=== PATIENT | male | born 1960 | race Caucasian/White ===

== ENCOUNTER → 2021-12-11 | Outpatient (CLI) | payer BC | LOC: ORTHO 15:08 | PROVIDERS: ATTEND Orthopaedic Surgery | DX: M17.12 Unilateral primary osteoarthritis, left knee (principal) | CPT/HCPCS: 93005; 99213 ==

== ENCOUNTER → 2021-12-11 | Outpatient (CLI) | payer BC ==
[2021-12-11 17:31] LABS: BILIRUBIN,URINE NEGATIVE (NEGATIVE); CLARITY,URINE CLEAR; COLOR,URINE YELLOW; GLUCOSE, URINE (UA) NEGATIVE (NEGATIVE); KETONES,URINE NEGATIVE (NEGATIVE); LEUKOCYTE ESTERASE ,URINE NEGATIVE (NEGATIVE); NITRITE,URINE NEGATIVE (NEGATIVE); PROTEIN,URINE NEGATIVE (NEGATIVE)
[2021-12-11 17:37] LABS: BASOPHILS # (AUTO) 0.1 10^3/uL (0.0-0.1); BASOPHILS % (AUTO) 1 % (0-10); EOSINOPHILS # (AUTO) 0.7 10^3/uL (0.0-0.3); EOSINOPHILS % (AUTO) 7 % (0-10); HEMATOCRIT 42 % (40-54); HEMOGLOBIN 13.3 g/dL (13.3-17.7); LYMPHOCYTES # (AUTO) 3.2 10^3/uL (1.0-4.0); LYMPHOCYTES % (AUTO) 33 % (12-44); MEAN CORPUSCULAR HEMOGLOBIN 27 pg (25-34); MEAN CORPUSCULAR HGB CONC 32 g/dL (32-36); MEAN CORPUSCULAR VOLUME 85 fL (80-99); MEAN PLATELET VOLUME 9.3 fL (9.0-12.2); MONOCYTES % (AUTO) 10 % (0-12); NEUTROPHILS # (AUTO) 4.6 10^3/uL (1.8-7.8); NEUTROPHILS % (AUTO) 49 % (42-75); PLATELET COUNT 338 10^3/uL (130-400); WHITE BLOOD COUNT 9.5 10^3/uL (4.3-11.0)
[2021-12-11 17:39] LABS: BACTERIA,URINE NEGATIVE /HPF; SQUAMOUS EPITHELIAL CELL,UR RARE /HPF
[2021-12-11 17:42] LABS: POTASSIUM 3.8 MMOL/L (3.6-5.0)
[2021-12-11 17:43] LABS: CALCIUM 9.8 MG/DL (8.5-10.1)
[2021-12-11 17:44] LABS: INR 0.9 (0.8-1.4); PROTHROMBIN TIME PATIENT 12.1 SEC (12.2-14.7)
[2021-12-11 17:47] LABS: CREATININE SERUM 0.81 MG/DL (0.60-1.30)
--- NOTE | 2021-12-11 18:06 | Diagnostic Imaging Report ---
INDICATION: Preop for left knee replacement surgery. TIME OF EXAM: 4:49 PM No prior studies are available for comparison. FINDINGS: The heart size is normal. The pulmonary vascularity is unremarkable. The lungs are clear. No infiltrate, effusion or pneumothorax is detected. IMPRESSION: No acute cardiopulmonary process is detected. Dictated by: Dictated on workstation # [id number]
--- NOTE | 2021-12-11 18:25 | Diagnostic Imaging Report ---
INDICATION: Left knee replacement surgery. TIME OF EXAM: 4:52 PM Multiple views of the left knee demonstrate significant medial compartmental degenerative change with complete loss of the medial joint space. Lateral compartment is fairly well maintained. There is some marginal spurring present. No fracture, dislocation or effusion is seen. IMPRESSION: Degenerative changes. No acute bony abnormality is detected. Dictated by: Dictated on workstation # [id number]
== END ==
LOC: RT 16:23
PROVIDERS: ATTEND Orthopaedic Surgery
DX: Z00.00 Encounter for general adult medical examination without abnormal findings (principal); M17.12 Unilateral primary osteoarthritis, left knee; Z96.652 Presence of left artificial knee joint
CPT/HCPCS: 36415; 71046; 73564; 80048; 81000; 85025; 85610; 85730

== ENCOUNTER 2021-12-25 05:37 | Outpatient (CLI) | payer BC ==
[~2021-12-25] VITALS: Ht 175.3 cm; Wt 125.0 kg
[2021-12-26] MEDS ORDERED: ACET325C7 PO (16:03)
[2021-12-26] MEDS ORDERED: ASPI81TA64 PO (16:03)
[2021-12-26] MEDS ORDERED: OMG1KC PO (16:03)
[2021-12-26] MEDS ORDERED: CALC-900 PO (16:03)
[2021-12-26] MEDS ORDERED: CHOL100048 PO (16:03)
[2021-12-26] MEDS ORDERED: LISI10TA25 PO (16:03)
[2021-12-26] MEDS ORDERED: FURO20TA4 PO (16:03)
[2021-12-26] MEDS ORDERED: IBUP200C11 PO (16:03)
[2021-12-26] MEDS ORDERED: ATOR40TA70 PO (16:03)
[2021-12-26] MEDS ORDERED: LORA10TA7 PO (16:03)
[2021-12-26] MEDS ORDERED: MULT-567 PO (16:03)
[2021-12-26] MEDS ORDERED: POTA10TA37 PO (16:03)
== END 2021-12-26 16:12 | disposition home or self-care (01) ==
LOC: PREOP 05:37
PROVIDERS: ATTEND Orthopaedic Surgery
DX: Z01.818 Encounter for other preprocedural examination (principal)

== ENCOUNTER 2021-12-31 06:15 | Inpatient (IN) | payer BC ==
[2021-12-31] VITALS (11 sets, daily range): BP systolic 134–203; BP diastolic 61–105
[~2021-12-31] VITALS: Ht 175.3 cm; Wt 125.0 kg
[~2021-12-31 06:15] MED LIST: ACET325C7 PO; ASPI81TA64 PO; ATOR40TA70 PO; CALC-900 PO; CHOL100048 PO; FURO20TA4 PO; IBUP200C11 PO; LISI10TA25 PO; LORA10TA7 PO; MULT-567 PO; OMG1KC PO; POTA10TA37 PO
[2021-12-31] MEDS ORDERED: MIDAZOLAM 2 MG/2 ML (VERSED) VIAL ONE (06:43)
[2021-12-31] MEDS ORDERED: ROPIVACAINE 5MG/ML 30ML VIAL ONE (06:45)
[2021-12-31] MEDS ORDERED: ceFAZolin INJECTION 3,000 MG in NS (IVPB) 100 ML IV ONE ×4 (07:00)
[2021-12-31] MEDS: LACTATED RINGERS 1,000 ML IV PRN ×2 (07:00→08:05)
[2021-12-31] MEDS ORDERED: LACTATED RINGERS 1,000 ML IV PRN (07:00)
--- NOTE | 2021-12-31 07:08 | Progress Note-Pre Operative ---
Pre-Operative Progress Note H&P Reviewed The H&P was reviewed, patient examined and no changes noted. Date Seen by Provider: Dec 31, 2021 Time Seen by Provider: 07:05 Date H&P Reviewed: Dec 31, 2021 Time H&P Reviewed: 07:05 Pre-Operative Diagnosis: Left Knee Primary Osteoarthritis RAYNA BRAR MD Dec 31, 2021 07:08
[2021-12-31] MEDS ORDERED: fentaNYL INJ 100 MCG/2 ML AMP ONE (07:09)
[2021-12-31] MEDS ORDERED: proPOfol 200 MG/20 ML (DIPRIVAN) VIAL IV ONE (07:09)
[2021-12-31] MEDS ORDERED: LIDOCAINE PF 2% 5 ML (XYLOCAINE) VIAL ONE (07:09)
[2021-12-31] MEDS ORDERED: ONDANSETRON 4 MG/2 ML (SDV) Z0FRAN ONE (07:09)
[2021-12-31] MEDS ORDERED: ROCURONIUM 10 MG/ML 5 ML SYRINGE IV ONE (07:10)
[2021-12-31] MEDS ORDERED: NEOSTIGMINE 3 MG/3 ML VIAL ONE (07:10)
[2021-12-31] MEDS ORDERED: GLYCOPYRROLATE 0.2 MG/ML (ROBINUL) 2 ML VIAL ONE (07:10)
[2021-12-31] MEDS ORDERED: TRANEXAMIC ACID 100 MG/ML 10 ML INJECTION ONE (07:23)
[2021-12-31] MEDS ORDERED: TRANEXAMIC ACID INJECTION 3,000 MG, SODIUM CHLORIDE 0.9% IRRIGATIO 150 ML IR ONE ×2 (07:45)
[2021-12-31] MEDS ORDERED: HYDROmorphone 2 MG/ML VIAL (DILAUDID) ONE (07:47)
[2021-12-31] MEDS ORDERED: SEVOFLURANE (ULTANE) 15 ML INHAL SOLN ONE (09:27)
[2021-12-31] MEDS ORDERED: MILK OF MAGNESIA 400 MG/5 ML 30 ML UDC PO PRN (09:45)
[2021-12-31] MEDS ORDERED: ONDANSETRON 4 MG/2 ML (SDV) Z0FRAN IV PRN (09:45)
[2021-12-31] MEDS ORDERED: BISACODYL 5 MG (DULCOLAX) TABLET PO PRN (09:45)
--- NOTE | 2021-12-31 10:04 | Operative Report - Ortho ---
Operative Report Surgeon (s)/Customer Service Correspondence Clerk (s) Surgeon RAYNA BRAR MD Customer Service Correspondence Clerk n/a Pre-Operative Diagnosis Left Knee Primary Osteoarthritis Post-Operative Diagnosis same Operative Report Date of Procedure: Dec 31, 2021 Name of Procedure Performed: Left Total Knee Arthroplasty Description & Findings After obtaining informed consent and marking the patient in the preoperative holding area, the patient did receive IV antibiotics. Patient was taken to the operating room and anesthesia was induced. Surgical timeout was taken. The left lower extremity was prepped and draped in the usual sterile fashion. Incision was made and carried down to fascia. Arthrotomy was performed on the medial side of the patella. Patella was retracted laterally and knee was flexed. Found to have circumferential osteophtye around the distal femur as well as exposed bone in the medial compartment. Hole was made in the distal femur for the intramedullary distal femoral cutting guide. Resection was made then the femur was sized as a 5. 4-in-1 block for a size [address]. Anterior cut was made and there was no notch. Posterior cut was made followed by the chamfers. Box cut was performed. Lug holes were drilled. Attention was turned to the tibial side, extramedullary tibial guide was put into place and aligned with the tibial crest. It was set to take 2 mm off of the affected medial side. Drop stanton was used to confirm alignment. Resection was made and was parallel to the joint line. Tibial bone block was removed. Lamina veneer glue spreader was put into place and the menisci and posterior osteophytes were removed. The knee was trialed with a size 5 femur and a size 5 tibia with a 9 mm poly trial. It was found to come out to full extension and flexed beyond 120 degrees. It was stable to varus and valgus stress throughout its range of motion. This was accepted. Knee was brought out into extension and the patellar articular surface was in good condition. Osteophytes were removed from around the perimeter of the patella. Trial implants were removed. Tibial tray was pinned and punched. Tibial press fit guide was placed and holes were drilled. The cut bone surfaces were lavaged with pulsatile normal saline. Implants were opened and assembled on the back table. A size 5 press fit tibial component was impacted into place. A size 5 press fit femoral component was impacted into place. Tibial tray was lavaged with saline. A 9 mm thick polyethylene component was locked into placed and the locking mechanism was checked. Knee was brought into extension. Betadine soak was performed and then, the knee was irrigated with normal saline. The knee was once again trialed; found to come to full extension, flexed beyond 120 degrees, and was stable to varus and valgus stress. Tourniquet was dropped and electrocautery was used for hemostasis. Fascial layer was closed with #1 Ethibond. The subcutaneous layer was closed with 2-0 Vicryl. The skin was closed with a running subcuticular 3-0 V-loc. Wound was dressed with steri- strips, xeroform, 4x4s, ABD, webril, and LIYA wrap. Patient tolerated the proc edure well and was stable to the recovery room. Anesthesia Type General plus Regional Estimated Blood Loss 150 mL Specimen(s) collected/removed None RAYNA BRAR MD Dec 31, 2021 10:04
--- NOTE | 2021-12-31 10:08 | Diagnostic Imaging Report ---
INDICATION: Left knee pain. TECHNIQUE: AP and lateral views of the left knee were obtained. FINDINGS: There is a left knee prosthesis which appears in good alignment. There is no sign of device loosening or fracture. There is soft tissue gas, compatible with the recent surgery. There is no unexpected radiopaque foreign body. IMPRESSION: Well aligned left knee prosthesis with no acute abnormality. Dictated by: Dictated on workstation # [id number]
[2021-12-31] MEDS ORDERED: morphine INJ 10 MG/ML 1ML (SYR OR VIAL) IVP ONE (10:15)
[2021-12-31] MEDS ORDERED: ONDANSETRON 4 MG/2 ML (SDV) Z0FRAN IVP PRN (10:15)
[2021-12-31] MEDS ORDERED: LABETALOL HCL 20 MG/4 ML VIAL IV PRN (10:15)
[2021-12-31] MEDS ORDERED: HYDROmorphone 2 MG/ML VIAL (DILAUDID) IV ONE (10:15)
--- NOTE | 2021-12-31 11:38 | Physical Therapy Evaluation ---
PT Evaluation-General Medical Diagnosis Admission Date Dec 31, 2021 at 06:15 Medical Diagnosis: left knee TKR Onset Date: Dec 31, 2021 Therapy Diagnosis Therapy Diagnosis: impaired mobility/strength Weight Bear Status Right Lower Extremity: Right Full Weight Bearing Left Lower Extremity: Left Weight Bearing/Tolerated Referral Physician: Fátima Reason for Referral: Evaluation/Treatment Medical History Current History s/p elective left TKR Reviewed History: Yes Social History Home: Single Level Current Living Status: Spouse Prior Prior Level of Function SCALE: Activities may be completed with or without assistive devices. 3-Iqhesrjmhc-rraytiy completes the activity by him/herself with no assistance from a helper. 5-Set-up or Clean-up Assistance-helper sets up or cleans up; patient completes activity. [place] assists only prior to or following the activity. 4-Supervision or Touching Assistance-helper provides verbal cues and/or touching/steadying and/or contact guard assistance as patient completes ac tivity. Assistance may be provided throughout the activity or intermittently. 3-Partial/Moderate Assistance-helper does LESS THAN HALF the effort. [place] lifts, holds or supports trunk or limbs, but provides less than half the effort. 2-Substantial/Maximal Assistance-helper does MORE THAN HALF the effort. [place] lifts or holds trunk or limbs and provides more than half the effort. 3-Vobkbinvb-idqxww does ALL the effort. Patient does none of the effort to complete the activity. Or, the assistance of 2 or more helpers is required for the patient to complete the activity. If activity was not attempted, code reason: 7-Patient Refused. 9-Not Applicable-not attempted and the patient did not perform the activity before the current illness, exacerbation or injury. 10-Not Attempted due to Environmental Limitations-(lack of equipment, weather restraints, etc.). 88-Not Attempted due to Medical Conditions or Safety Concerns. Bed Mobility: 6 Transfers (B,C,W/C): 6 Gait: 6 Stairs: 6 Indoor Mobility (Ambulation): Independent Stairs: Independent Prior Devices Use: None PT Evaluation-Current Subjective Patient is very agreeable to participate with PT. Patient reports he mowed grass yesterday. Spouse confirms. Pain Numeric Pain Scale: 5-Moderate Pain Location: Left Location Body Site: Knee Pain Description: Acute Objective Patient Orientation: Normal For Age Attachments: Kerns Catheter, IV ROM/Strength ROM Lower Extremities CPM 0-54 degrees Strength Lower Extremities right LE 4/5 grossly/left LE 3+/5 grossly Integumentary/Posture Integumentary refer to nursing notes Bladder Incontinence: Kerns Cath Neuromuscular (Tone, Coordination, Reflexes) grossly intact Sensory Vision: Functional Hearing: Functional Transfers Lying to Sitting/Side of Bed(Q: 4 (SBA) Sit to Stand (QC): 4 (CGA for safety) Chair/Ayy-lr-Qvlvu Xfer(QC): 4 (CGA for safety) Gait Does the Patient Walk?: Yes Mode of Locomotion: Walk Anticipated Mode of Locomotion: Walk Walk 10 feet (QC): 4 Walk 50 ft with 2 Turns(QC): 4 Walk 150 ft (QC): 88 Distance: 100' Gait Assistive Device: FWW Comments/Gait Description slow, step to gait sequence Balance Sitting Static: Normal Sitting Dynamic: Normal Standing Static: Good Standing Dynamic: Good Treatment CPM 0-54 degrees with polar pack in place left knee left LE exercises 10 reps each HS,QS, SLR, seated LAQ Assessment/Needs Patient highly motivated with current progress and is up in recliner with needs met. Patient instructed to perform LAQ PRN while seated. Increase activity as tolerated by patient. Rehab Potential: Good PT Electric Motor Repairing Supervisor Goals Electric Motor Repairing Supervisor Goals PT Alf Goals Time Frame: Jan 05, 2022 Roll Left & Right (QC): 6 Sit to Lying (QC): 6 Lying-Sitting on Side/Bed(QC): 6 Sit to Stand (QC): 6 Chair/Fyw-ci-Llhpa Xfer(QC): 6 Toilet Transfer (QC): 6 Walk 10 feet (QC): 6 Walk 50ft with 2 Turns (QC): 6 Walk 150 ft (QC): 6 1 Step (curb) (QC): 6 4 Steps (QC): 6 PT Plan Problem List Problem List: Activity Tolerance, Safety, Gait, Transfer, Bed Mobility, ROM Treatment/Plan Treatment Plan: Continue Plan of Care Treatment Plan: Bed Mobility, Education, Functional Activity [place], Functional Strength, Gait, Safety, Therapeutic Exercise, Transfers Treatment Duration: Jan 05, 2022 Frequency: 11 times per week Estimated Hrs Per Day: .5 hour per day (to 1 hour/day) Patient and/or Family Agrees t: Yes Safety Risks/Education Patient Education: Gait Training Teaching Recipient: Patient Teaching Methods: Discussion Response to Teaching: Verbalize Understanding, Return Demonstration Discharge Recommendations Therapy Discharge Recommendati: Home & Family, Post Acute PT Time/GCodes Time In: 1340 Time Out: 1409 Total Billed Treatment Time: 29 Total Billed Treatment 1 visit EVM 15 min GT 14 min 1 visit CPM/PADS [id number] PATRICE MARI PT Dec 31, 2021 11:38
[2021-12-31] MEDS: NS IV 1000 ML 1,000 ML IV SCH ×2 (12:33→21:22)
[2021-12-31] MEDS: morphine INJ 4 MG/ML 1 ML (VIAL/SYRINGE) IVP PRN ×3 (13:51→21:39)
[2021-12-31] MEDS ORDERED: ceFAZolin INJECTION 1,000 MG VIAL IV SCH (14:00)
[2021-12-31] MEDS: ceFAZolin INJECTION 3,000 MG in NS (IVPB) 100 ML IV SCH ×2 (16:28→23:42)
[2021-12-31] MEDS: ASPIRIN E.C. 81 MG (ECOTRIN) TAB PO SCH (18:29)
[2021-12-31] MEDS: CELECOXIB 100 MG (CeleBREX) CAP PO SCH (19:31)
[2021-12-31] MEDS: DOCUSATE SODIUM 100 MG (COLACE) CAP PO SCH (19:33)
[2022-01-01] MEDS: morphine INJ 4 MG/ML 1 ML (VIAL/SYRINGE) IVP PRN ×2 (01:14→10:38)
[2022-01-01 03:35] VITALS: BP 138/63
[2022-01-01 05:21] LABS: HEMOGLOBIN 10.7 g/dL (13.3-17.7)
[2022-01-01] MEDS: KCL 10 MEQ TAB (MICRO K) PO SCH (06:46)
[2022-01-01] MEDS: MULTIVIT W/MINERALS TAB (THERAGRAN M) PO SCH (06:46)
--- NOTE | 2022-01-01 07:57 | Progress Note - Ortho ---
Progress Note Subjective Date of Exam 01/01/22 Chief Complaint POD #1 L TKA HPI/Events since last exam some calf pain last night, doing reasonably well this AM, getting ready to do therapy Review of Systems - Allergies: Coded Allergies: simvastatin (Unverified Allergy, Severe, 12/26/21) SEVERE MUSCLE PAIN Home Meds Reported Medications Multivitamin (Multivitamins) 1 Each Tablet, 1 EACH PO UD, TAB 12/26/21 Atorvastatin Calcium (Atorvastatin Calcium) 40 Mg Tablet, 20 MG PO, TAB 12/26/21 Cholecalciferol (Vitamin D3) (Vitamin D3) 25 Mcg Capsule, 25 MCG PO DAILY, CAP 12/26/21 Acetaminophen (Tylenol) 325 Mg Capsule, 325 MG PO UD, CAP 12/26/21 Potassium Chloride (Potassium Chloride) 10 Meq Tab.er.prt, 10 MEQ PO DAILY 12/26/21 Loratadine (Loratadine) 10 Mg Tablet, 1 MG PO, TAB 12/26/21 Lisinopril (Lisinopril) 10 Mg Tablet, 10 MG PO DAILY, TAB 12/26/21 Furosemide (Furosemide) 20 Mg Tablet, 20 MG PO DAILY, TAB 12/26/21 [place] 3 Polyunsat Fatty Acids (Fish Oil 1,000 mg Capsule) 1,000 Mg Cap, 1000 MG PO DAILY, CAP 12/26/21 Calcium Phosphate Trib/Vit D3 (Citracal + D3 Gummies) 1 Each Tab.chew, 1 EACH PO DAILY, TAB 12/26/21 Aspirin (Children's Aspirin) 81 Mg Tab.chew, 81 MG PO DAILY, TAB 12/26/21 Ibuprofen (Advil) 200 Mg Capsule, 200 MG PO TID, CAP 12/26/21 Objective Exam L Knee: Dressing C/D/I, +DF of ankle, no s/s of DVT Vital Signs Vital Signs Date Time Temp Pulse Resp B/P (MAP) Pulse Ox O2 Delivery O2 Flow Rate FiO2 01/01/22 03:35 36.6 93 18 138/63 (88) 94 Room Air 12/31/21 23:43 36.8 96 20 146/66 (92) 93 Room Air 12/31/21 19:22 99 18 164/70 (101) 93 Room Air 12/31/21 18:49 91 Room Air 12/31/21 15:56 36.8 99 19 134/80 (98) 93 Room Air 12/31/21 11:00 36.2 95 22 180/92 (121) 93 Nasal Cannula 2.00 12/31/21 10:43 Nasal Cannula 2 12/31/21 10:40 36.7 15 185/93 (123) 92 Nasal Cannula 2 12/31/21 10:30 Nasal Cannula 2 12/31/21 10:30 14 183/103 (129) 93 Nasal Cannula 2 12/31/21 10:20 16 186/82 (116) 95 Nasal Cannula 2 12/31/21 10:15 Nasal Cannula 2 12/31/21 10:10 18 166/61 (96) 97 Nasal Cannula 3 12/31/21 10:00 OxyMask 3 12/31/21 10:00 16 203/103 (136) 95 OxyMask 4 12/31/21 09:49 OxyMask 6 12/31/21 09:49 36.5 20 178/105 (129) 96 OxyMask 6 I & O 01/01/22 06:59 Intake Total 3942 ml Output Total 2525 ml Balance 1417 ml Lab Results Laboratory Tests 01/01/22 05:10: Hemoglobin 10.7L, Hematocrit 34L Imaging 2 postop views of the left knee dated 12/31/21 were reviewed and demonstrated total knee arthroplasty without complication Assessment and Plan Assessment Left Knee Primary Osteoarthritis s/p L TKA Problem List Left Knee Primary Osteoarthritis s/p L TKA Plan PT/OT DVT Prophylaxis Plan for Home with Home Health tomorrow afternoon/evening Final Diagonsis Left Knee Primary Osteoarthritis s/p L TKA Level of the visit: Level 3 (global) RAYNA BRAR MD Jan 01, 2022 07:57
[2022-01-01 08:00] VITALS: BP 165/81
--- NOTE | 2022-01-01 08:28 | Anesthesia-Regional Post-Op ---
Regional Patient Condition Mental Status: Alert, Oriented x3 Circulation: Same as Pre-Op Headache: Absent Sensation: Full Recovery Motor Block: Absent Post Op Complications Complications None Follow Up Care/Instructions Patient Instructions None needed. Anesthesia/Patient Condition Patient is doing well, no complaints, stable vital signs, no apparent adverse anesthesia problems. No complications reported per nursing. CELESTINO PACKER CRNA Jan 01, 2022 08:28
--- NOTE | 2022-01-01 08:28 | Anesthesia-General Post-Op ---
General Patient Condition Mental Status/LOC: Same as Preop Cardiovascular: Satisfactory Nausea/Vomiting: Absent Respiratory: Satisfactory Pain: Controlled Complications: Absent Post Op Complications Complications None Follow Up Care/Instructions Patient Instructions None needed. Anesthesia/Patient Condition Patient Condition Patient is doing well, no complaints, stable vital signs, no apparent adverse anesthesia problems. No complications reported per nursing. CELESTINO PACKER CRNA Jan 01, 2022 08:28
[2022-01-01] MEDS: FUROSEMIDE 20 MG (LASIX) TAB PO SCH (08:34)
[2022-01-01] MEDS: lisINopril 10 MG (PRINIVIL) TABLET PO SCH (08:34)
[2022-01-01] MEDS: DOCUSATE SODIUM 100 MG (COLACE) CAP PO SCH ×2 (08:35→20:21)
[2022-01-01] MEDS: ASPIRIN E.C. 81 MG (ECOTRIN) TAB PO SCH ×2 (08:35→17:28)
[2022-01-01] MEDS: CELECOXIB 100 MG (CeleBREX) CAP PO SCH ×2 (08:35→20:21)
[2022-01-01] MEDS: LORATADINE (CLARITIN) 10 MG TAB PO SCH (08:45)
--- NOTE | 2022-01-01 08:51 | Physical Therapy Daily Note ---
PT Daily Note-Current Subjective Patient agree to PT. No c/o at this time. Pain Numeric Pain Scale: 5-Moderate Pain Location: Left Location Body Site: Knee Pain Description: Acute Mental Status Patient Orientation: Normal For Age Transfers SCALE: Activities may be completed with or without assistive devices. 1-Tyfgkomxam-mgdzrgg completes the activity by him/herself with no assistance from a helper. 5-Set-up or Clean-up Assistance-helper sets up or cleans up; patient completes activity. [place] assists only prior to or following the activity. 4-Supervision or Touching Assistance-helper provides verbal cues and/or touching/steadying and/or contact guard assistance as patient completes activity. Assistance may be provided throughout the activity or intermittently. 3-Partial/Moderate Assistance-helper does LESS THAN HALF the effort. [place] lifts, holds or supports trunk or limbs, but provides less than half the effort. 2-Substantial/Maximal Assistance-helper does MORE THAN HALF the effort. [place] lifts or holds trunk or limbs and provides more than half the effort. 0-Dercpsxns-dsuiie does ALL the effort. Patient does none of the effort to complete the activity. Or, the assistance of 2 or more helpers is required for the patient to complete the activity. If activity was not attempted, code reason: 7-Patient Refused. 9-Not Applicable-not attempted and the patient did not perform the activity before the current illness, exacerbation or injury. 10-Not Attempted due to Environmental Limitations-(lack of equipment, weather restraints, etc.). 88-Not Attempted due to Medical Conditions or Safety Concerns. Lying to Sitting/Side of Bed(Q: 6 Sit to Stand (QC): 6 Chair/Xnj-oy-Oebgd Xfer(QC): 6 Weight Bearing Right Lower Extremity: Right Full Weight Bearing Left Lower Extremity: Left Weight Bearing/Tolerated Gait Training Distance: 275' Walk 10 feet (QC): 6 Walk 50 ft with 2 Turns(QC): 6 Walk 150 ft (QC): 6 Gait Assistive Device: FWW slow, reciprocal pattern Exercises Supine Ex: Ankle pumps, Quad Set, Heel Slides, Straight leg raise Supine Reps: 15 Seated Therapy Exercises: Long arc quads Seated Reps: 15 Assessment Patient improving with treatment plan and will dismiss to home tomorrow per physician. Patient instructed to ambulate PRN in hallway. RN notified. PT Longterm Goals Longterm Goals PT Production Leader Goals Time Frame: Jan 05, 2022 Roll Left & Right (QC): 6 Sit to Lying (QC): 6 Lying-Sitting on Side/Bed(QC): 6 Sit to Stand (QC): 6 Chair/Pvy-lv-Hepjs Xfer(QC): 6 Toilet Transfer (QC): 6 Walk 10 feet (QC): 6 Walk 50ft with 2 Turns (QC): 6 Walk 150 ft (QC): 6 1 Step (curb) (QC): 6 4 Steps (QC): 6 PT Plan Treatment/Plan Treatment Plan: Continue Plan of Care Treatment Plan: Bed Mobility, Education, Functional Activity [place], Functional Strength, Gait, Safety, Therapeutic Exercise, Transfers Treatment Duration: Jan 05, 2022 Frequency: 11 times per week Estimated Hrs Per Day: .5 hour per day (to 1 hour/day) Patient and/or Family Agrees t: Yes Time/GCodes Time In: 736 Time Out: 800 Total Billed Treatment Time: 24 Total Billed Treatment 1 visit EX 11 min GT 13 min PATRICE MARI PT Jan 01, 2022 08:51
[2022-01-01] MEDS ORDERED: NON-FORMULARY MEDICATION 1 EA EA (Potassium Chloride 10 MEQ) PO SCH (09:00)
[2022-01-01] MEDS ORDERED: LORATADINE (CLARITIN) 10 MG TAB PO SCH (09:00)
--- NOTE | 2022-01-01 09:05 | Occupational Therapy Eval ---
OT Evaluation-General/PLF Medical Diagnosis Admission Date Dec 31, 2021 at 06:15 Medical Diagnosis: left knee TKR Onset Date: Dec 31, 2021 Therapy Diagnosis Therapy Diagnosis: n/a Precautions Precautions/Isolations: Standard Precautions Weight Bear Status Weight Bearing Restriction: Weight Bearing/Tolerated Location Restriction: L LE Referral Physician: Fátima Referral Reason: Evaluation/Treatment Medical History Current History post op day 1, s/p L TKR. Per patient, he lives with in single story home. He was indep with adls and shares iadl responsibilities with . 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 Reviewed History: Yes Social History Home: Single Level Current Living Status: Spouse Entry Into Home: Stairs With Railing Steps Into Home: 2 ADL-Prior Level of Function SCALE: Activities may be completed with or without assistive devices. 0-Rbgtrjepnl-ldcnydv completes the activity by him/herself with no assistance from a helper. 5-Set-up or Clean-up Assistance-helper sets up or cleans up; patient completes a ctivity. [place] assists only prior to or following the activity. 4-Supervision or Touching Assistance-helper provides verbal cues and/or touching/steadying and/or contact guard assistance as patient completes activity. Assistance may be provided throughout the activity or intermittently. 3-Partial/Moderate Assistance-helper does LESS THAN HALF the effort. [place] lifts, holds or supports trunk or limbs, but provides less than half the effort. 2-Substantial/Maximal Assistance-helper does MORE THAN HALF the effort. [place] lifts or holds trunk or limbs and provides more than half the effort. 3-Wibkxacsh-xqhgcf does ALL the effort. Patient does none of the effort to complete the activity. Or, the assistance of 2 or more helpers is required for the patient to complete the activity. If activity was not attempted, code reason: 7-Patient Refused. 9-Not Applicable-not attempted and the patient did not perform the activity before the current illness, exacerbation or injury. 10-Not Attempted due to Environmental Limitations-(lack of equipment, weather restraints, etc.). 88-Not Attempted due to Medical Conditions or Safety Concerns. Self Care: Independent Functional Cognition: Independent DME/Equipment: Shower [address] Self: Yes OT Current Status Subjective Pt agreeable to eval, requests to ambulate in halls. Appearance Pt returned to sitting in recliner, per RN pt can be up ad willie in room/gutierrez. Mental Status/Objective Patient Orientation: Person, Place, Situation Attachments: IV Current Glasses/Contacts: Yes Hearing Aids: No Dentures/Partials: No Hand Dominance: Right Upper Extremity ROM WNL Upper Extremity Strength WNL ADL-Treatment Eating (QC): 6 Oral Hygiene (QC): 6 Upper Body Dressing (QC): 6 (per clinical judgment) Lower Body Dressing (QC): 4 On/Off Footwear (QC): 3 Toileting Hygiene (QC): 6 Pt sitting in recliner at OT arrival. He was able to don/doff R sock with extra time/effort but no physical assistance. Due to increase in pain with L knee flexion, assist needed to don L sock. Pt reports that he was needing assist with donning bilateral socks prior to surgery and that his can continue to assist post discharge. Education on compensatory method when donning pants. Sit<>stand: indep. He ambulated to/from bathroom with supervision for safety, no LOB. He was able to remove bilateral hands from walker to manage clothing and lower/stand from toilet without assist. Pt denies need to void/have BM. He repo rts that he just returned from walking in the halls with physical therapy, yet requests to go on another walk. He ambulated ~100 feet in gutierrez with supervision, 2 standing rest breaks, No unsteadiness. Pt asks several questions regarding discharge and exercises for healing/strengthening. Education also provided on care of incision during bathing. Pt reports that he will probably complete sponge baths until his follow up appointment. Education OT Patient Education: Correct positioning, Energy conservation, Exercise program, Modified ADL techniques, Purpose of tx/functional activities, Reviewed precautions Teaching Recipient: Patient Teaching Methods: Discussion Response to Teaching: Verbalize Understanding OT Director Of Home Economics Goals Director Of Home Economics Goals 1=Demonstrate adherence to instructed precautions during ADL tasks. 2=Patient will verbalize/demonstrate understanding of assistive devices/m odifications for ADL. 3=Patient will improve strength/tolerance for activity to enable patient to perform ADL's. OT Education/Plan Problem List/Assessment Assessment: No Skilled OT Needs ID'd Discharge Recommendations Plan/Recommendations: Discontinue OT Therapy Discharge Recommendati: Home & Family Treatment Plan/Plan of Care Treatment,Training & Education: Yes Patient would benefit from OT for education, treatment and training to promote independence in ADL's, mobility, safety and/or upper extremity function for ADL's. Plan of Care: ADL Retraining Treatment Duration: Jan 01, 2022 Frequency: 1 time per week Estimated Hrs Per Day: .25 hour per day Agreement: Yes Rehab Potential: Good Time/GCodes Start Time: 08:24 Stop Time: 08:47 Total Time Billed (hr/min): 23 Billed Treatment Time 1 visit EVL (10 min) FA (13 min) Vesta Perez OT Jan 01, 2022 09:05
[2022-01-01 12:00] VITALS: BP 142/65
--- NOTE | 2022-01-01 13:53 | Physical Therapy Daily Note ---
PT Daily Note-Current Subjective Patient has requested a pain pill due to increase left knee pain. RN notified. Pain Numeric Pain Scale: 8 Location: Left Location Body Site: Knee Pain Description: Acute Mental Status Patient Orientation: Normal For Age Transfers SCALE: Activities may be completed with or without assistive devices. 6-Zrvfrmcsaj-ivfygez completes the activity by him/herself with no assistance from a helper. 5-Set-up or Clean-up Assistance-helper sets up or cleans up; patient completes activity. [place] assists only prior to or following the activity. 4-Supervision or Touching Assistance-helper provides verbal cues and/or touching/steadying and/or contact guard assistance as patient completes activity. Assistance may be provided throughout the activity or intermittently. 3-Partial/Moderate Assistance-helper does LESS THAN HALF the effort. [place] lifts, holds or supports trunk or limbs, but provides less than half the effort. 2-Substantial/Maximal Assistance-helper does MORE THAN HALF the effort. [place] lifts or holds trunk or limbs and provides more than half the effort. 9-Eikvjtvco-hijgpw does ALL the effort. Patient does none of the effort to complete the activity. Or, the assistance of 2 or more helpers is required for the patient to complete the activity. If activity was not attempted, code reason: 7-Patient Refused. 9-Not Applicable-not attempted and the patient did not perform the activity before the current illness, exacerbation or injury. 10-Not Attempted due to Environmental Limitations-(lack of equipment, weather restraints, etc.). 88-Not Attempted due to Medical Conditions or Safety Concerns. Sit to Stand (QC): 6 Weight Bearing Right Lower Extremity: Right Full Weight Bearing Left Lower Extremity: Left Weight Bearing/Tolerated Gait Training Distance: 275' Walk 10 feet (QC): 6 Walk 50 ft with 2 Turns(QC): 6 Walk 150 ft (QC): 6 Gait Assistive Device: FWW steady, slightly antalgic Exercises Seated Therapy Exercises: Ankle pumps, Long arc quads Seated Reps: 15 Treatments verbal review on bed exercises due to patient did not want to return to bed. Assessment Patient remains up in recliner. Patient's left knee flexion in sit is ~90 degrees and 0 with extension. Patient continues to be up ad willie in room and hallway. PT Nursing Home Goals Form Drafter Goals PT Form Drafter Goals Time Frame: Jan 05, 2022 Roll Left & Right (QC): 6 Sit to Lying (QC): 6 Lying-Sitting on Side/Bed(QC): 6 Sit to Stand (QC): 6 Chair/Xiq-dj-Runpy Xfer(QC): 6 Toilet Transfer (QC): 6 Walk 10 feet (QC): 6 Walk 50ft with 2 Turns (QC): 6 Walk 150 ft (QC): 6 1 Step (curb) (QC): 6 4 Steps (QC): 6 PT Plan Treatment/Plan Treatment Plan: Continue Plan of Care Treatment Plan: Bed Mobility, Education, Functional Activity [place], Functional Strength, Gait, Safety, Therapeutic Exercise, Transfers Treatment Duration: Jan 05, 2022 Frequency: 11 times per week Estimated Hrs Per Day: .5 hour per day (to 1 hour/day) Patient and/or Family Agrees t: Yes Time/GCodes Time In: 1245 Time Out: 1300 Total Billed Treatment Time: 15 Total Billed Treatment 1 visit FA 15 min PATRICE MARI PT Jan 01, 2022 13:53
[2022-01-01 16:00] VITALS: BP 146/66
[2022-01-01] MEDS: ACETAMINOPHEN 500 MG TAB (TYLENOL) PO PRN ×2 (16:27→22:37)
[2022-01-01 20:00] VITALS: BP 135/61
[2022-01-02] VITALS (7 sets, daily range): BP systolic 126–153; BP diastolic 58–72
[2022-01-02 05:43] LABS: HEMOGLOBIN 10.6 g/dL (13.3-17.7)
[2022-01-02] MEDS: MULTIVIT W/MINERALS TAB (THERAGRAN M) PO SCH (06:02)
[2022-01-02] MEDS: KCL 10 MEQ TAB (MICRO K) PO SCH (06:02)
[2022-01-02] MEDS: CELECOXIB 100 MG (CeleBREX) CAP PO SCH ×2 (08:05→20:36)
[2022-01-02] MEDS: lisINopril 10 MG (PRINIVIL) TABLET PO SCH (08:05)
[2022-01-02] MEDS: LORATADINE (CLARITIN) 10 MG TAB PO SCH (08:05)
[2022-01-02] MEDS: DOCUSATE SODIUM 100 MG (COLACE) CAP PO SCH ×2 (08:05→20:35)
[2022-01-02] MEDS: FUROSEMIDE 20 MG (LASIX) TAB PO SCH (08:05)
[2022-01-02] MEDS: ASPIRIN E.C. 81 MG (ECOTRIN) TAB PO SCH ×2 (08:05→17:18)
--- NOTE | 2022-01-02 08:44 | Physical Therapy Daily Note ---
PT Daily Note-Current Subjective Pt. agrees to Rx. States his pain in right knee is at 5/10. Hasnt had BM yet Pain Numeric Pain Scale: 5-Moderate Pain Location: Right Location Body Site: Knee Pain Description: Pressure Mental Status Patient Orientation: Normal For Age Transfers SCALE: Activities may be completed with or without assistive devices. 0-Uwxdesohwq-jdutcvh completes the activity by him/herself with no assistance from a helper. 5-Set-up or Clean-up Assistance-helper sets up or cleans up; patient completes activity. [place] assists only prior to or following the activity. 4-Supervision or Touching Assistance-helper provides verbal cues and/or touch ing/steadying and/or contact guard assistance as patient completes activity. Assistance may be provided throughout the activity or intermittently. 3-Partial/Moderate Assistance-helper does LESS THAN HALF the effort. [place] lifts, holds or supports trunk or limbs, but provides less than half the effort. 2-Substantial/Maximal Assistance-helper does MORE THAN HALF the effort. [place] lifts or holds trunk or limbs and provides more than half the effort. 8-Zuoyqteft-qfehkz does ALL the effort. Patient does none of the effort to complete the activity. Or, the assistance of 2 or more helpers is required for the patient to complete the activity. If activity was not attempted, code reason: 7-Patient Refused. 9-Not Applicable-not attempted and the patient did not perform the activity before the current illness, exacerbation or injury. 10-Not Attempted due to Environmental Limitations-(lack of equipment, weather restraints, etc.). 88-Not Attempted due to Medical Conditions or Safety Concerns. Roll Left & Right (QC): 6 Sit to Lying (QC): 4 Lying to Sitting/Side of Bed(Q: 6 Sit to Stand (QC): 6 Chair/Fkp-kf-Wwxpx Xfer(QC): 6 Toilet Transfer (QC): 6 Weight Bearing Right Lower Extremity: Right Full Weight Bearing Left Lower Extremity: Left Weight Bearing/Tolerated Gait Training Does the Patient Walk?: Yes Walk 10 feet (QC): 6 Walk 50 ft with 2 Turns(QC): 6 Walk 150 ft (QC): 6 Gait Persons Needed: 0 Gait Assistive Device: FWW equal step length, good heel strike and toe off, safe gait good use of device Stair Training Stairs: Pattern: Step to simulated steps, pt. has rail on right entering home and has been using this pattern prior to surg Exercises Supine Ex: Ankle pumps, Quad Set, Heel Slides, Short Arc Quads, Scooting, Straight leg raise (assisted) Supine Reps: 12 Seated Therapy Exercises: Ankle pumps, Sit to stand, Long arc quads Seated Reps: 15 Treatments bed TRFs, safe sitting and standing, gait with FWW 250 ft, TKR protocol Assessment Current Status: Good Progress meets goals for DC, up ad willie with FWW, 5 d to 75d PT Appliance Service Technician Goals Long-Term Goals PT Appliance Service Technician Goals Time Frame: Jan 05, 2022 Roll Left & Right (QC): 6 Sit to Lying (QC): 6 Lying-Sitting on Side/Bed(QC): 6 Sit to Stand (QC): 6 Chair/Avj-dq-Dzmvx Xfer(QC): 6 Toilet Transfer (QC): 6 Walk 10 feet (QC): 6 Walk 50ft with 2 Turns (QC): 6 Walk 150 ft (QC): 6 1 Step (curb) (QC): 6 4 Steps (QC): 6 PT Plan Treatment/Plan Treatment Plan: Continue Plan of Care Treatment Plan: Bed Mobility, Education, Functional Activity [place], Functional Strength, Gait, Safety, Therapeutic Exercise, Transfers Treatment Duration: Jan 05, 2022 Frequency: 11 times per week Estimated Hrs Per Day: .5 hour per day (to 1 hour/day) Patient and/or Family Agrees t: Yes Safety Risks/Education Patient Education: Gait Training, Transfer Techniques, Steps, Correct Po sitioning, Disease Process, Safety Issues Teaching Recipient: Patient Teaching Methods: Demonstration, Discussion Response to Teaching: Verbalize Understanding, Return Demonstration, Reinfor cement Needed Time/GCodes Time In: 800 Time Out: 840 Total Billed Treatment Time: 40 Total Billed Treatment 1,FA15m,EX15m,GT10m ANTONIO KENNY PTA Jan 02, 2022 08:44
--- NOTE | 2022-01-02 09:49 | Progress Note - Ortho ---
Progress Note Subjective Date of Exam 01/02/22 Chief Complaint POD #2 L TKA HPI/Events since last exam making progress with therapy, has not had a BM and concerned about that, pain controlled on oral pain medication Review of Systems - Allergies: Coded Allergies: simvastatin (Unverified Allergy, Severe, 12/26/21) SEVERE MUSCLE PAIN Home Meds Reported Medications Multivitamin (Multivitamins) 1 Each Tablet, 1 EACH PO UD, TAB 12/26/21 Atorvastatin Calcium (Atorvastatin Calcium) 40 Mg Tablet, 20 MG PO, TAB 12/26/21 Cholecalciferol (Vitamin D3) (Vitamin D3) 25 Mcg Capsule, 25 MCG PO DAILY, CAP 12/26/21 Acetaminophen (Tylenol) 325 Mg Capsule, 325 MG PO UD, CAP 12/26/21 Potassium Chloride (Potassium Chloride) 10 Meq Tab.er.prt, 10 MEQ PO DAILY 12/26/21 Loratadine (Loratadine) 10 Mg Tablet, 1 MG PO, TAB 12/26/21 Lisinopril (Lisinopril) 10 Mg Tablet, 10 MG PO DAILY, TAB 12/26/21 Furosemide (Furosemide) 20 Mg Tablet, 20 MG PO DAILY, TAB 12/26/21 [place] 3 Polyunsat Fatty Acids (Fish Oil 1,000 mg Capsule) 1,000 Mg Cap, 1000 MG PO DAILY, CAP 12/26/21 Calcium Phosphate Trib/Vit D3 (Citracal + D3 Gummies) 1 Each Tab.chew, 1 EACH PO DAILY, TAB 12/26/21 Aspirin (Children's Aspirin) 81 Mg Tab.chew, 81 MG PO DAILY, TAB 12/26/21 Ibuprofen (Advil) 200 Mg Capsule, 200 MG PO TID, CAP 12/26/21 Objective Exam L Knee: Dressing C/D/I, +DF of ankle, no s/s of DVT Vital Signs Vital Signs Date Time Temp Pulse Resp B/P (MAP) Pulse Ox O2 Delivery O2 Flow Rate FiO2 01/02/22 09:00 Room Air 01/02/22 08:00 36.8 92 20 142/68 (92) 96 Room Air 01/02/22 04:03 36.5 79 20 138/61 (86) 90 Room Air 01/02/22 00:18 36.3 82 20 151/65 (93) 92 Room Air 01/01/22 21:00 Room Air 01/01/22 20:00 36.1 89 18 135/61 (85) 96 Room Air 01/01/22 16:00 36.1 84 20 146/66 (92) 95 Room Air 01/01/22 12:00 35.8 99 18 142/65 (90) 94 Room Air I & O 01/02/22 07:00 Intake Total 2320 ml Balance 2320 ml Lab Results Laboratory Tests 01/02/22 05:14: Hemoglobin 10.6L, Hematocrit 34L Microbiology 12/31/21 MRSA Screen - Final, Complete MRSA not isolated Assessment and Plan Assessment Left Knee Primary Osteoarthritis s/p L TKA Problem List Left Knee Primary Osteoarthritis s/p L TKA Plan PT/OT DVT Prophylaxis Arranging home health, plan for home tomorrow Bowel regimen Final Diagonsis Left Knee Primary Osteoarthritis s/p L TKA Level of the visit: Level 3 (global) RAYNA BRAR MD Jan 02, 2022 09:49
[2022-01-02] MEDS: ACETAMINOPHEN 500 MG TAB (TYLENOL) PO PRN ×2 (11:54→20:40)
--- NOTE | 2022-01-02 13:58 | Physical Therapy Daily Note ---
PT Daily Note-Current Subjective Pt. agrees to Rx. "Im still here bc theyre having trouble getting some home care set up for me that my insurance will pay for" Pain Numeric Pain Scale: 4 (before Rx, no pain after Rx) Location: Left Location Body Site: Knee Pain Description: Ache Mental Status Patient Orientation: Normal For Age Transfers SCALE: Activities may be completed with or without assistive devices. 8-Dyqhrjpyfg-rgrgowj completes the activity by him/herself with no assistance from a helper. 5-Set-up or Clean-up Assistance-helper sets up or cleans up; patient completes activity. [place] assists only prior to or following the activity. 4-Supervision or Touching Assistance-helper provides verbal cues and/or touching/steadying and/or contact guard assistance as patient completes ac tivity. Assistance may be provided throughout the activity or intermittently. 3-Partial/Moderate Assistance-helper does LESS THAN HALF the effort. [place] lifts, holds or supports trunk or limbs, but provides less than half the effort. 2-Substantial/Maximal Assistance-helper does MORE THAN HALF the effort. [place] lifts or holds trunk or limbs and provides more than half the effort. 8-Xltkgjxnk-eeoyoe does ALL the effort. Patient does none of the effort to complete the activity. Or, the assistance of 2 or more helpers is required for the patient to complete the activity. If activity was not attempted, code reason: 7-Patient Refused. 9-Not Applicable-not attempted and the patient did not perform the activity before the current illness, exacerbation or injury. 10-Not Attempted due to Environmental Limitations-(lack of equipment, weather restraints, etc.). 88-Not Attempted due to Medical Conditions or Safety Concerns. in out chair Mod I, in out bed using UEs and right LE to support LLE Weight Bearing Right Lower Extremity: Right Full Weight Bearing Left Lower Extremity: Left Weight Bearing/Tolerated Gait Training Does the Patient Walk?: Yes Gait Assistive Device: FWW 375 ft FWW good pattern, equal step length, indep no LOB Exercises Supine Ex: Ankle pumps, Quad Set, Heel Slides, Straight leg raise (assisted) Supine Reps: 15 Seated Therapy Exercises: Ankle pumps, Sit to stand Seated Reps: 15 Assessment Current Status: Good Progress PT Senior Living Goals Environmental Safety Specialist Goals PT Environmental Safety Specialist Goals Time Frame: Jan 05, 2022 Roll Left & Right (QC): 6 Sit to Lying (QC): 6 Lying-Sitting on Side/Bed(QC): 6 Sit to Stand (QC): 6 Chair/Cnl-qo-Oislc Xfer(QC): 6 Toilet Transfer (QC): 6 Walk 10 feet (QC): 6 Walk 50ft with 2 Turns (QC): 6 Walk 150 ft (QC): 6 1 Step (curb) (QC): 6 4 Steps (QC): 6 PT Plan Treatment/Plan Treatment Plan: Continue Plan of Care Treatment Plan: Bed Mobility, Education, Functional Activity [place], Functional Strength, Gait, Safety, Therapeutic Exercise, Transfers Treatment Duration: Jan 05, 2022 Frequency: 11 times per week Estimated Hrs Per Day: .5 hour per day (to 1 hour/day) Patient and/or Family Agrees t: Yes Safety Risks/Education Patient Education: Gait Training, Transfer Techniques, Correct Positioning, Disease Process, Safety Issues Teaching Recipient: Patient Teaching Methods: Demonstration, Discussion Response to Teaching: Verbalize Understanding, Return Demonstration, Reinforcement Needed Time/GCodes Time In: 1315 Time Out: 1345 Total Billed Treatment Time: 30 Total Billed Treatment 1,EX15m,GT15m ANTONIO KENNY DRAFTER SEISMOGRAPH Jan 02, 2022 13:58
[2022-01-03] MEDS: ACETAMINOPHEN 500 MG TAB (TYLENOL) PO PRN ×2 (03:09→14:49)
[2022-01-03 03:10] VITALS: BP 143/66
[2022-01-03] MEDS: MULTIVIT W/MINERALS TAB (THERAGRAN M) PO SCH (05:59)
[2022-01-03] MEDS: KCL 10 MEQ TAB (MICRO K) PO SCH (05:59)
[2022-01-03 07:36] VITALS: BP 150/67
[2022-01-03] MEDS: CELECOXIB 100 MG (CeleBREX) CAP PO SCH (08:11)
[2022-01-03] MEDS: ASPIRIN E.C. 81 MG (ECOTRIN) TAB PO SCH (08:11)
[2022-01-03] MEDS: lisINopril 10 MG (PRINIVIL) TABLET PO SCH (08:12)
[2022-01-03] MEDS: LORATADINE (CLARITIN) 10 MG TAB PO SCH (08:12)
[2022-01-03] MEDS: FUROSEMIDE 20 MG (LASIX) TAB PO SCH (08:12)
[2022-01-03] MEDS: DOCUSATE SODIUM 100 MG (COLACE) CAP PO SCH (08:12)
--- NOTE | 2022-01-03 08:45 | Discharge Summary ---
Discharge Summary Hospital Course Hospital Course Date of Admission: Dec 31, 2021 at 06:15 Admission Diagnosis : Family Physician/Provider: Date of Discharge: 01/03/22 Discharge Diagnosis: [Left Knee Primary Osteoarthritis s/p L TKA ] Hospital Course: [Admitted on 12/31/21. Underwent left total knee arthroplasty. Tolerated the procedure well and was admitted to the regular floor. On the day of surgery, he did start DVT prophylaxis and therapy/use of the CPM. On POD #1, his pain required IV medication as well as an oral regimen. He made some progress with therapy. On POD #2, he continued to improve from a mobility standpoint. His pain was controlled on oral medication. Arrangements were attempted to be made for home health. On POD #3, he was ambulating well over 100 feet. He was tolerating a regular diet. He was ready for discharge home.] Labs and Pending Lab Test: Microbiology 12/31/21 MRSA Screen - Final, Complete MRSA not isolated Home Meds Active Reported Multivitamins (Multivitamin) 1 Each Tablet 1 Each PO UD Atorvastatin Calcium 40 Mg Tablet 20 Mg PO Vitamin D3 (Cholecalciferol (Vitamin D3)) 25 Mcg Capsule 25 Mcg PO DAILY Tylenol (Acetaminophen) 325 Mg Capsule 325 Mg PO UD Potassium Chloride 10 Meq Tab.er.prt 10 Meq PO DAILY Loratadine 10 Mg Tablet 1 Mg PO Lisinopril 10 Mg Tablet 10 Mg PO DAILY Furosemide 20 Mg Tablet 20 Mg PO DAILY Fish Oil 1,000 mg Capsule ([place] 3 Polyunsat Fatty Acids) 1,000 Mg Cap 1,000 Mg PO DAILY Citracal + D3 Gummies (Calcium Phosphate Trib/Vit D3) 1 Each Tab.chew 1 Each PO DAILY Children's Aspirin (Aspirin) 81 Mg Tab.chew 81 Mg PO DAILY Advil (Ibuprofen) 200 Mg Capsule 200 Mg PO TID Assessment/Pt Instructions WBAT with walker, dry telfa to incision daily, therapy for ROM/strengthening/gait training, F/U with Dr. Raz Shine ~2 weeks from date of surgery Discharge Instructions Discharge Diet: Regular Diet Discharge Physical Examination Vital Signs Vital Signs Date Time Temp Pulse Resp B/P (MAP) Pulse Ox O2 Delivery O2 Flow Rate FiO2 01/03/22 07:36 36.6 85 18 150/67 (94) 95 Room Air 12/31/21 11:00 2.00 Extremity: Other (Left Knee: Incision C/D/I, +DF of ankle, no s/s of DVT) Allergies: Coded Allergies: simvastatin (Unverified Allergy, Severe, 12/26/21) SEVERE MUSCLE PAIN Discharge Summary Date of Admission Dec 31, 2021 at 06:15 Date of Discharge RAZ SHINE MD Jan 03, 2022 08:45
[2022-01-03] MEDS ORDERED: OXC5T PO (08:46)
[2022-01-03] MEDS ORDERED: ASPI-1238 PO (08:46)
--- NOTE | 2022-01-03 09:04 | Physical Therapy Daily Note ---
PT Daily Note-Current Subjective Patient reports he is doing much better today and is ready to go home. Pain Numeric Pain Scale: 5-Moderate Pain Location: Left Location Body Site: Knee Pain Description: Acute Mental Status Patient Orientation: Normal For Age Transfers SCALE: Activities may be completed with or without assistive devices. 1-Telqpanqsz-pwpfkgu completes the activity by him/herself with no assistance from a helper. 5-Set-up or Clean-up Assistance-helper sets up or cleans up; patient completes activity. [place] assists only prior to or following the activity. 4-Supervision or Touching Assistance-helper provides verbal cues and/or touching/steadying and/or contact guard assistance as patient completes activity. Assistance may be provided throughout the activity or intermittently. 3-Partial/Moderate Assistance-helper does LESS THAN HALF the effort. [place] lifts, holds or supports trunk or limbs, but provides less than half the effort. 2-Substantial/Maximal Assistance-helper does MORE THAN HALF the effort. [place] lifts or holds trunk or limbs and provides more than half the effort. 3-Vntaweuot-bwhorb does ALL the effort. Patient does none of the effort to complete the activity. Or, the assistance of 2 or more helpers is required for the patient to complete the activity. If activity was not attempted, code reason: 7-Patient Refused. 9-Not Applicable-not attempted and the patient did not perform the activity before the current illness, exacerbation or injury. 10-Not Attempted due to Environmental Limitations-(lack of equipment, weather restraints, etc.). 88-Not Attempted due to Medical Conditions or Safety Concerns. Sit to Stand (QC): 6 Toilet Transfer (QC): 6 Weight Bearing Right Lower Extremity: Right Full Weight Bearing Left Lower Extremity: Left Weight Bearing/Tolerated Gait Training Distance: 300' x 2 Walk 10 feet (QC): 6 Walk 50 ft with 2 Turns(QC): 6 Walk 150 ft (QC): 6 Walking 10ft/uneven surface-QC: 6 Gait Assistive Device: FWW reciprocal pattern Stair Training Stair Training: Handrails/: 1 handrail, uses walker #of Steps: 4 1 Step (curb) (QC): 4 4 Steps (QC): 4 Stairs: Pattern: Step to Exercises Seated Therapy Exercises: Ankle pumps, Long arc quads, Hip flexion Seated Reps: 15 (x 2) Standing: Heel/toe raises, Marching (left LE hip flexion in stand) Standing Reps: 15 Assessment left knee AROM in sit 5-90 degrees. Patient improving and is compliant with exercise program and ambulation PRN. Plan dismissal on this date. PT Alf Goals Director Of Employer Services Goals PT Director Of Employer Services Goals Time Frame: Jan 05, 2022 Roll Left & Right (QC): 6 Sit to Lying (QC): 6 Lying-Sitting on Side/Bed(QC): 6 Sit to Stand (QC): 6 Chair/Umi-xc-Drwah Xfer(QC): 6 Toilet Transfer (QC): 6 Walk 10 feet (QC): 6 Walk 50ft with 2 Turns (QC): 6 Walk 150 ft (QC): 6 1 Step (curb) (QC): 6 4 Steps (QC): 6 PT Plan Treatment/Plan Treatment Plan: Discontinue PT, goals met Treatment Plan: Bed Mobility, Education, Functional Activity [place], Functional Strength, Gait, Safety, Therapeutic Exercise, Transfers Treatment Duration: Jan 05, 2022 Frequency: 11 times per week Estimated Hrs Per Day: .5 hour per day (to 1 hour/day) Patient and/or Family Agrees t: Yes Time/GCodes Time In: 735 Time Out: 800 Total Billed Treatment Time: 25 Total Billed Treatment 1 visit FA x 2 25 min PATRICE MARI PT Jan 03, 2022 09:04
[2022-01-03 12:00] VITALS: BP 133/60
[2022-01-03 15:28] VITALS: BP 133/63
== END 2022-01-03 17:15 | disposition home or self-care (01) | DRG 470 ==
LOC: 4TH 06:15 → SURG 06:16 → 4TH 10:45
PROVIDERS: ADMIT Orthopaedic Surgery; ATTEND Orthopaedic Surgery
PROC: 0SRD0JA Replacement of Left Knee Joint with Synthetic Substitute, Uncemented, Open Approach (ICD-10-PCS; principal; 2021-12-31 07:15)
DX: M17.12 Unilateral primary osteoarthritis, left knee (principal); I10 Essential (primary) hypertension; E78.00 Pure hypercholesterolemia, unspecified; Z87.891 Personal history of nicotine dependence; Z79.82 Long term (current) use of aspirin; Z88.8 Allergy status to other drugs, medicaments and biological substances
CPT/HCPCS: 36415; 73560; 85014; 85018; 87081; 94664; 94760

== ENCOUNTER → 2022-01-22 | Outpatient (CLI) | payer BC ==
[~2022-01-22] MED LIST changes: +ASPI-1238 PO; +OXC5T PO
== END ==
LOC: ORTHO 11:30
PROVIDERS: ATTEND Orthopaedic Surgery
DX: Z47.89 Encounter for other orthopedic aftercare (principal)

== ENCOUNTER → 2022-02-05 | Outpatient (CLI) | payer BC ==
--- NOTE | 2022-02-05 12:25 | Diagnostic Imaging Report ---
INDICATION: Postop left knee. TIME OF EXAM: 9:32 AM Correlation is made with prior radiograph from 12/31/2021. FINDINGS: Postop changes total knee arthroplasties are noted. Prosthetic elements are in good position. No fracture or loosening is seen. Bony structures are intact. IMPRESSION: Satisfactory postop left knee. Dictated by: Dictated on workstation # [id number]
== END ==
LOC: ORTHO 09:24
PROVIDERS: ATTEND Orthopaedic Surgery
DX: Z47.89 Encounter for other orthopedic aftercare (principal); Z98.890 Other specified postprocedural states
CPT/HCPCS: 73560

== ENCOUNTER → 2022-05-14 | Outpatient (CLI) | payer BC | LOC: ORTHO 15:38 | PROVIDERS: ATTEND Orthopaedic Surgery | DX: M25.562 Pain in left knee (principal); I10 Essential (primary) hypertension; Z96.652 Presence of left artificial knee joint | CPT/HCPCS: 99213 ==

== ENCOUNTER → 2022-12-31 | Outpatient (CLI) | payer BC ==
[~2022-12-31] MED LIST changes: +POTA-177 PO; -POTA10TA37 PO
--- NOTE | 2022-12-31 16:51 | Diagnostic Imaging Report ---
Indication: Left knee replacement. Time of Exam: 3:43 PM Correlation is made with prior radiograph from 02/05/2022. Postoperative changes of total knee arthroplasty are noted. Prosthetic elements are in good positions without fracture or loosening. No acute bony abnormality is seen. There is no effusion. IMPRESSION: Postop changes. No acute feature is detected. Dictated by: Dictated on workstation # [id number]
== END ==
LOC: ORTHO 15:20
PROVIDERS: ATTEND Orthopaedic Surgery
DX: Z96.652 Presence of left artificial knee joint (principal); I10 Essential (primary) hypertension
CPT/HCPCS: 73560; 99213